=== PATIENT | male | born 1965 | race Caucasian/White ===

== ENCOUNTER → 2018-12-12 | Outpatient (CLI) | payer OTHER ==
--- NOTE | 2018-12-12 11:56 | RAD ---
EXAM: Lumbar spine, 3 views. HISTORY: Pain. COMPARISON: None. FINDINGS: 3 views of the lumbar spine are obtained. There is sacralization of the L5 vertebral segment, with associated articulation of the sacralized L5 transverse process with the underlying sacrum. This is a normal variant. There is mild levoscoliosis centered at L4. There is minimal retrolisthesis of L4 and L5. There is degenerative endplate remodeling and facet arthropathy at the mid and lower lumbar levels. 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 IMPRESSION: 1. Multilevel degenerative change throughout the lumbar spine, described in detail above. 2. Partial sacralization of the L5 segment, a normal variant. Electronically signed by: Paige Guzman MD (12/12/2018 11:53 AM) [id number]
== END | disposition home or self-care (01) ==
LOC: RAD 11:01
PROVIDERS: ATTEND Family Medicine
DX: M47.896 Other spondylosis, lumbar region (principal); M43.26 Fusion of spine, lumbar region; I70.0 Atherosclerosis of aorta; M12.88 Other specific arthropathies, not elsewhere classified, other specified site
CPT/HCPCS: 72100